=== PATIENT | female | born 1960 | race Caucasian/White ===

== ENCOUNTER 2016-08-18 21:03 | Emergency (ER) | payer BC ==
[~2016-08-18 21:03] MED LIST: ALLEGRA PO; AMITRYPTYLINE PO; AXERT12.5 MG PO; FERROUS SULFATE PO; FLEXERIL PO; LUMIGAN OU; PROPRANOLOL PO; PROTONIX PO; SUDAFED PO; TOPAMAX PO; ZOLOFT PO
== END 2016-08-18 21:30 | disposition home or self-care (01) ==
LOC: SED 21:03
DX: G43.909 Migraine, unspecified, not intractable, without status migrainosus (principal); Z88.0 Allergy status to penicillin; Z88.5 Allergy status to narcotic agent; Z88.1 Allergy status to other antibiotic agents; Z88.8 Allergy status to other drugs, medicaments and biological substances
CPT/HCPCS: 36415; 96374; 96375; 99284; J0780; J1100; J1200; J1885

== ENCOUNTER 2016-11-10 14:57 | Emergency (ER) | payer BC ==
--- NOTE | ~2016-11-10 | CR20 ---
[facility]. [facility] A Service of [facility] & [facility] RADIOLOGY TEXT RESULTS PATIENT: RUSSELL HERNANDEZ LOCATION: SED : 64 UNIT #: [id number] AGE: [address]: BIMAL DE SEX: F ORDER DR: [id number] [address] [address] [id number] E MR#: [id number] Acc #: [id number] NAME: RUSSELL HERNANDEZ : 1960 SEX: F STUDY DATE/TIME: 11/10/2016 16:18 UNIT: SED ROOM: STUDY DESCRIPTION: CR Ankle Min 3 Views Lt Attending Physician: Bimal De Ordering Physician: Bimal De Primary Care Physician: Allen Jordan M.D. MEDICAL IMAGING REPORT This report is preliminary unless electronic signature is present. EXAM Left ankle series, 11/10/2016 INDICATION Fell down steps today at home. Pain in the left ankle. TECHNIQUE 3 views of the left ankle COMPARISON No comparisons FINDINGS The examination is negative. No acute fracture. Ankle mortise intact. Small calcaneal spur. IMPRESSION Negative. Dictated by... Zaid Trammell M.D. THIS IS AN ELECTRONICALLY VERIFIED REPORT Zaid Trammell M.D. at 11/11/2016 1:57 PM Karen TD: 11/11/2016 09:23 JOB #: [id number] MEDICAL IMAGING REPORT Page 1 of 1
--- NOTE | ~2016-11-10 | CR282 ---
[facility]. [facility] A Service of [facility] & [facility] RADIOLOGY TEXT RESULTS PATIENT: RUSSELL HERNANDEZ LOCATION: SED : 64 UNIT #: [id number] AGE: [address]: BIMAL DE SEX: F ORDER DR: [id number] [address] [address] [id number] E MR#: [id number] Acc #: [id number] NAME: RUSESLL HERNANDEZ : 1960 SEX: F STUDY DATE/TIME: 11/10/2016 16:36 UNIT: SED ROOM: STUDY DESCRIPTION: CR Wrist Min 3 View Rt Attending Physician: Bimal De Ordering Physician: Bimal De Primary Care Physician: Allen Jordan M.D. MEDICAL IMAGING REPORT This report is preliminary unless electronic signature is present. EXAM Right wrist, 11/10/2016 INDICATION Fell down the steps today at home. Wrist tenderness. TECHNIQUE 3 views COMPARISON No comparisons. FINDINGS The examination is negative. No acute fracture. Alignment preserved. IMPRESSION Negative. Dictated by... Zaid Trammell M.D. THIS IS AN ELECTRONICALLY VERIFIED REPORT Zaid Trammell M.D. at 11/11/2016 1:57 PM Karen TD: 11/11/2016 09:27 JOB #: [id number] MEDICAL IMAGING REPORT Page 1 of 1
--- NOTE | ~2016-11-10 | CR21 ---
[facility]. [facility] A Service of [facility] RADIOLOGY TEXT RESULTS PATIENT: RUSSELL HERNANDEZ LOCATION: SED : 64 UNIT #: [id number] AGE: [address]: BIMAL DE SEX: F ORDER DR: [id number] [address] [address] [id number] E MR#: [id number] Acc #: [id number] NAME: RUSSELL HERNANDEZ : 1960 SEX: F STUDY DATE/TIME: 11/10/2016 16:18 UNIT: SED ROOM: STUDY DESCRIPTION: CR Ankle Min 3 Views Rt Attending Physician: Bimal De Ordering Physician: Bimal De Primary Care Physician: Allen Jordan M.D. MEDICAL IMAGING REPORT This report is preliminary unless electronic signature is present. EXAM Right ankle, 11/10/2016. INDICATION Fell down the steps today at home. Pain in the right ankle, anteriorly and posteriorly. TECHNIQUE Three views of the right ankle. COMPARISON No comparisons. FINDINGS The examination is negative. There is no acute fracture. Ankle mortise intact. Small calcaneal spur. IMPRESSION Negative. Dictated by... Zaid Trammell M.D. THIS IS AN ELECTRONICALLY VERIFIED REPORT Zaid Trammell M.D. at 11/11/2016 1:57 PM RADHA/lyubov TD: 11/11/2016 09:26 JOB #: [id number] [facility] A Service of [facility] RADIOLOGY TEXT RESULTS PATIENT: RUSSELL HERNANDEZ LOCATION: SED : 64 UNIT #: [id number] AGE: [address]: BIMAL DE SEX: F ORDER DR: MEDICAL IMAGING REPORT Page 1 of 1
--- NOTE | ~2016-11-10 | CR181 ---
[facility] A Service [facility] RADIOLOGY TEXT RESULTS PATIENT: RUSSELL HERNANDEZ LOCATION: SED : 64 UNIT #: [id number] AGE: [address]: BIMAL DE SEX: F ORDER DR: [id number] [address] [address] [id number] E MR#: [id number] Acc #: [id number] NAME: RUSSELL HERNANDEZ : 1960 SEX: F STUDY DATE/TIME: 11/10/2016 16:18 UNIT: SED ROOM: STUDY DESCRIPTION: CR Lumbar Spine 2 or 3 Views Attending Physician: Bimal De Ordering Physician: Bimal De Primary Care Physician: Allen Jordan M.D. MEDICAL IMAGING REPORT This report is preliminary unless electronic signature is present. EXAM Lumbar series, 11/10/2016. INDICATION 56-year-old female who fell down the steps today at home, neck and entire back pain. TECHNIQUE Three views of the lumbar spine.. COMPARISONS Correlation is made with lumbar MRI 02/07/2015. FINDINGS There is minimal grade 1 antegrade listhesis of L4 upon L5. This probably relates to degenerative disc disease at L4-5 and associated mild facet arthropathy. There is no acute fracture. Alignment otherwise preserved. Vascular-appearing calcifications in the pelvis. IMPRESSION 1. Mild degenerative changes. No acute fracture. 2. Grade 1 antegrade listhesis at the L4 level, likely related to degenerative change. Dictated by... Zaid Trammell M.D. THIS IS AN ELECTRONICALLY VERIFIED REPORT Zaid Trammell M.D. at 11/11/2016 1:57 PM JLY/tmw [facility] A Service [facility] RADIOLOGY TEXT RESULTS PATIENT: RUSSELL HERNANDEZ LOCATION: SED : 64 UNIT #: [id number] AGE: [address]: BIMAL DE SEX: F ORDER DR: TD: 11/11/2016 09:18 JOB #: [id number] MEDICAL IMAGING REPORT Page 1 of 1
--- NOTE | ~2016-11-10 | CT52 ---
[facility] A Service of [facility] RADIOLOGY TEXT RESULTS PATIENT: RUSSELL HERNANDEZ LOCATION: SED : 64 UNIT #: [id number] AGE: [address]: BIMAL DE SEX: F ORDER DR: [id number] [place] [id number] E MR#: [id number] Acc #: [id number] NAME: RUSSELL HERNANDEZ : 1960 SEX: F STUDY DATE/TIME: 11/10/2016 16:15 UNIT: SED ROOM: STUDY DESCRIPTION: CT Cervical Spine Wo Cont Attending Physician: Bimal De Ordering Physician: Bimal De Primary Care Physician: Allen Jordan M.D. MEDICAL IMAGING REPORT This report is preliminary unless electronic signature is present. EXAM Cervical spine CT, no contrast DATE OF STUDY: 11/10/16 COMPARISON: None PROCEDURE: Axial cervical spine CT without contrast with multiplanar reformats. The CT exam was performed with one or more of the following radiation dose reduction techniques: automatic exposure control, adjustment of mA and/or kV according to patient size, and iterative reconstruction. CLINICAL HISTORY Neck pain after fall down steps today. FINDINGS Alignment is normal. There is no fracture, no bone erosion or destruction. The paraspinous soft tissues are unremarkable. IMPRESSION Slight degenerative change, otherwise normal unremarkable cervical spine CT, no acute abnormality. Dictated by... Wicho Nevarez M.D. THIS IS AN ELECTRONICALLY VERIFIED REPORT [facility] A Service of [facility] RADIOLOGY TEXT RESULTS PATIENT: RUSSELL HERNANDEZ LOCATION: SED : 64 UNIT #: [id number] AGE: [address]: BIMAL DE SEX: F ORDER DR: Wicho Nevarez M.D. at 11/12/2016 10:31 AM TEV/nesha TD: 11/11/2016 09:46 JOB #: [id number] MEDICAL IMAGING REPORT Page 1 of 1
--- NOTE | ~2016-11-10 | CR243 ---
[facility]. [facility] A Service of [facility] RADIOLOGY TEXT RESULTS PATIENT: RUSSELL HERNANDEZ LOCATION: SED : 64 UNIT #: [id number] AGE: [address]: BIMAL DE SEX: F ORDER DR: [id number] [address] [address] [id number] E MR#: [id number] Acc #: [id number] NAME: RUSSELL HERNANDEZ : 1960 SEX: F STUDY DATE/TIME: 11/10/2016 16:18 UNIT: SED ROOM: STUDY DESCRIPTION: CR Thoracic Spine 3 Views Attending Physician: Bimal De Ordering Physician: Bimal De Primary Care Physician: Allen Jordan M.D. MEDICAL IMAGING REPORT This report is preliminary unless electronic signature is present. EXAM Thoracic series, 11/10/2016. INDICATION 56-year-old female who fell the down steps today at home. Entire back pain. TECHNIQUE Three views of the thoracic spine were performed. COMPARISON There are no comparisons. FINDINGS The cervicothoracic junction is intact. No acute fracture. Alignment preserved. Minimal levoscoliosis of the upper thoracic spine and old healed granulomatous disease. IMPRESSION Mild upper thoracic levoscoliosis. Otherwise negative. Dictated by... Zaid Trammell M.D. THIS IS AN ELECTRONICALLY VERIFIED REPORT Zaid Trammell M.D. at 11/11/2016 1:57 PM RADHA/lyubov [facility] A Service of [facility] & [facility] RADIOLOGY TEXT RESULTS PATIENT: RUSSELL HERNANDEZ LOCATION: SED : 64 UNIT #: [id number] AGE: [address]: BIMAL DE SEX: F ORDER DR: TD: 11/11/2016 09:20 JOB #: [id number] MEDICAL IMAGING REPORT Page 1 of 1
[2016-11-10] MEDS ORDERED: BUPROPION HCL75 MG (15:00)
[2016-11-10] MEDS ORDERED: PAXIL (15:01)
[2016-11-10] MEDS ORDERED: LEVOTHYROXINE112 MCG (15:01)
[2016-11-10] MEDS ORDERED: DEXILANT30 MG (15:01)
[2016-11-10] MEDS ORDERED: ZANAFLEX (15:01)
[2016-11-10] MEDS ORDERED: AMITRYPTYLINE (15:01)
[2016-11-10 17:27] LABS: MICRO INDICATED? NO; URINE APPEARANCE CLEAR; URINE BILIRUBIN NEG (NEG); URINE BLOOD NEG (NEG); URINE COLOR YELLOW; URINE GLUCOSE NEG (NORM); URINE KETONE NEG (NEG); URINE LEUKOCYTE ESTERASE NEG (NEG); URINE NITRATE NEG (NEG); URINE PROTEIN NEG (NEG); URINE SOURCE CLEAN CATCH; URINE SPECIFIC GRAVITY 1.025 (1.003-1.035); URINE UROBILINOGEN 0.2 MG/DL (NORM)
== END 2016-11-10 18:45 | disposition home or self-care (01) ==
LOC: SED 14:57
PROVIDERS: Nurse Practitioner
DX: S16.1XXA Strain of muscle, fascia and tendon at neck level, initial encounter (principal); S39.012A Strain of muscle, fascia and tendon of lower back, initial encounter; S29.012A Strain of muscle and tendon of back wall of thorax, initial encounter; S90.31XA Contusion of right foot, initial encounter; S40.021A Contusion of right upper arm, initial encounter; S60.212A Contusion of left wrist, initial encounter; S90.812A Abrasion, left foot, initial encounter; Z88.5 Allergy status to narcotic agent; Z88.1 Allergy status to other antibiotic agents; Z88.0 Allergy status to penicillin; W10.9XXA Fall (on) (from) unspecified stairs and steps, initial encounter; Y92.009 Unspecified place in unspecified non-institutional (private) residence as the place of occurrence of the external cause
CPT/HCPCS: 29540; 72072; 72100; 72125; 73110; 73610; 81003; 90471; 90715; 96372; 99284; J1170; J2405